=== PATIENT | male | born 1930 | race Caucasian/White ===

== ENCOUNTER 2016-08-13 11:18 | Emergency (ER) | payer OTHER ==
[2016-08-13 12:34] LABS: BASOPHIL % 0.3 % (0-2); PLATELET COUNT 155 x10^3mcL (130-400)
[2016-08-13 12:43] LABS: RED CELL DISTRIBUTION WIDTH 15.4 % (11.5-14.5)
[2016-08-13 12:45] LABS: CALCIUM 8.4 mg/dL (8.5-10.1); CARBON DIOXIDE 30.4 mmol/L (21-32); CHLORIDE SERUM 106 mmol/L (98-107); CREATININE SERUM 0.9 mg/dL (0.7-1.3); GLUCOSE SERUM 120 mg/dL (74-106); SODIUM SERUM 143 mmol/L (136-145)
[2016-08-13 12:50] LABS: ALKALINE PHOSPHATASE 70 U/L (46-116); ALT/SGPT 20 U/L (16-63); AST/SGOT 17 U/L (15-37); BILIRUBIN TOTAL 0.69 mg/dL (0.20-1.00); TOTAL PROTEIN, SERUM 6.2 g/dL (6.4-8.2)
[2016-08-13 12:56] LABS: ALBUMIN 3.2 g/dL (3.4-5.0)
[2016-08-13 16:03] VITALS: BP 139/76
== END 2016-08-13 16:03 | disposition home or self-care (01) ==
LOC: ED 11:18
PROVIDERS: Emergency Medicine
DX: I83.12 Varicose veins of left lower extremity with inflammation (principal); I83.11 Varicose veins of right lower extremity with inflammation; M71.22 Synovial cyst of popliteal space [Baker], left knee; Z88.5 Allergy status to narcotic agent
CPT/HCPCS: 36415; 83880; Q0092